=== PATIENT | female | born 1965 | race Caucasian/White ===

== ENCOUNTER 2021-03-09 02:25 | Inpatient (IN) | payer OTHER ==
[2021-03-09] MEDS ORDERED: NALOXONE 0.4 MG/ML 1 ML VIAL IV PRN (03:09)
[2021-03-09] MEDS ORDERED: ONDANSETRON 4 MG/2 ML VIAL IVP PRN (03:09)
[2021-03-09] MEDS ORDERED: MORPHINE SULFATE 4 MG/ML SYRINGE IV PRN (03:09)
--- NOTE | 2021-03-09 03:19 | ED ---
General Adult HPI - General Chief complaint: Chest Pain Stated complaint: Chest Pain Time Seen by Provider: 03/09/21 02:33 Source: EMS Mode of arrival: EMS - History of Present Illness Initial comments: 55 year-old female patient presents to the emergency department as a transfer from [facility] for NSTEMI. Patient states earlier today she developed pain across her chest from shoulder to shoulder. States she had multiple high blood pressure readings at home so she went in for evaluation. While at the other facility she had extensive workup including labs, chest xray, and ekg. Initial troponin <0.05, second troponin elevated 0.13, they started heparin and transferred her here for further evaluation by cardiology. Upon presentation patient is resting comfortably states she is pain free. She denies personal or family history of cardiac disease. Does report history of high blood pressure and is a current everyday smoker. Patient denies any recent rash, f ever, chills, cough, abdominal pain, nausea, vomiting, diarrhea, constipation, back pain, numbness, tingling, dizziness, weakness, hematuria, dysuria, urinary urgency, urinary frequency, headache, visual changes, or any other complaints. - Related Data Allergies Allergy/AdvReac Type Severity Reaction Status Date / Time No Known Allergies Allergy Verified 03/09/21 02:31 Review of Systems ROS Statement: Those systems with pertinent positive or pertinent negative responses have been documented in the HPI. ROS Other: All systems not noted in ROS Statement are negative. Past Medical History Past Medical History: Seizure Disorder History of Any Multi-Drug Resistant Organisms: None Reported Past Surgical History: Cholecystectomy, Hysterectomy Past Psychological History: No Psychological Hx Reported Smoking Status: Current every day smoker Past Alcohol Use History: None Reported Past Drug Use History: None Reported General Exam General appearance: alert, in no apparent distress, other (Physical well- developed, well-nourished adult female patient in no acute distress.) Eye exam: Present: normal appearance, PERRL, EOMI. Absent: scleral icterus, conjunctival injection, periorbital swelling ENT exam: Present: normal exam, normal oropharynx, mucous membranes moist Respiratory exam: Present: normal lung sounds bilaterally. Absent: respiratory distress, wheezes, rales, rhonchi, stridor Cardiovascular Exam: Present: regular rate, normal rhythm, normal heart sounds. Absent: systolic murmur, diastolic murmur, rubs, gallop, clicks GI/Abdominal exam: Present: soft, normal bowel sounds. Absent: distended, tenderness, guarding, rebound, rigid Neurological exam: Present: alert, oriented X3, CN II-XII intact Psychiatric exam: Present: normal affect, normal mood Skin exam: Present: warm, dry, intact, normal color. Absent: rash Course Vital Signs 03/09/21 03/09/21 02:27 03:00 Temperature 97.7 F Pulse Rate 84 52 L Respiratory 19 18 Rate Blood Pressure 163/75 O2 Sat by Pulse 98 Oximetry EKG Findings - EKG Comments: EKG Findings:: EKG obtained here at [facility] to 37 shows normal sinus rhythm with prolonged QT interval. Ventricular rate is 81, ID interval 128, QRS duration 66, QT 452, QTc 525. No evidence of ST elevation or depression. Medical Decision Making - Medical Decision Making 55-year-old female patient presenting is a transfer from [facility] for an STEMI. Started having chest pain earlier today was evaluated in the ER, second troponin was elevated at 0.13. She was started on heparin transferred here. Upon arrival patient's resting comfortable, denies any pain. We did repeat troponin which was 0.251. EKG showed no ST elevation or depression. She'll be admitted to the hospital for further evaluation by cardiology in the morning. Case is discussed with my attending Dr. Saini. - Lab Data Lab Results 03/09/21 03/09/21 Range/Units 02:39 02:47 APTT 115.1 H* (22.0-30.0) sec Troponin I 0.251 H* (0.000-0.034) ng/mL - Radiology Data Radiology results: report reviewed, image reviewed Disposition Clinical Impression: NSTEMI (non-ST elevated myocardial infarction) Disposition: ADMITTED IP TO THIS [facility] Condition: Serious Decision to Admit Reason: Admit from EC Decision Date: 03/09/21 Decision Time: 03:20
[2021-03-09] MEDS ORDERED: HEPARIN SODIUM 1,000 UN/ML (10ML VL) IV PRN (04:01)
[2021-03-09] MEDS: SODIUM CHLORIDE 0.9% 1,000 ML IV SCH ×4 (04:53→19:33)
[2021-03-09] MEDS: HEPARIN SOD,PORK IN 0.45% NACL 25,000 UNIT in 0.45% NACL 1 250ML.BAG IV SCH ×2 (04:54→19:34)
[2021-03-09] MEDS ORDERED: HEPARIN SODIUM,PORCINE 2,500 UNIT in SODIUM CHLORIDE 0.9% 250 ML IRRIGATION PRN (07:00)
[2021-03-09] MEDS ORDERED: HEPARIN SODIUM,PORCINE 10,000 UNIT in SODIUM CHLORIDE 0.9% 1,000 ML IRRIGATION PRN (07:00)
[2021-03-09] MEDS: METOPROLOL TARTRATE 25 MG TAB PO SCH ×2 (08:00→19:32)
[2021-03-09] MEDS ORDERED: ASPIRIN 325 MG TAB PO STA (08:47)
[2021-03-09] MEDS ORDERED: ALPRAZolam 0.25 MG TAB PO PRN (08:47)
[2021-03-09] MEDS ORDERED: ALPRAZolam 0.5 MG TAB PO PRN (08:47)
[2021-03-09] MEDS ORDERED: ATORVASTATIN 80 MG TAB PO STA (08:47)
[2021-03-09] MEDS ORDERED: NITROGLYCERIN SL TABS 0.4 MG TAB SUBLINGUAL PRN ×2 (08:47→11:54)
[2021-03-09] MEDS: SODIUM CHLORIDE 0.9% 1,000 ML in EMPTY BAG 1 BAG IV SCH (09:23)
[2021-03-09] MEDS: ASPIRIN 81 MG PO SCH (10:34)
[2021-03-09] MEDS ORDERED: SODIUM CHLORIDE 0.9% 1,000 ML IV ONE (10:35)
[2021-03-09] MEDS ORDERED: VERAPAMIL 2.5 MG/ML 2 ML AMP ONE (10:48)
[2021-03-09] MEDS ORDERED: LIDOCAINE 1% INJ 10MG/ML (20 ML MDV) ONE (10:49)
[2021-03-09] MEDS ORDERED: fentaNYL (PF) 50 MCG/ML 2 ML AMP ONE (11:03)
[2021-03-09] MEDS ORDERED: fentaNYL (PF) 50 MCG/ML 2 ML AMP IV ONE (11:07)
[2021-03-09] MEDS ORDERED: MIDAZOLAM 2 MG/2 ML VIAL IV ONE (11:07)
[2021-03-09] MEDS ORDERED: LIDOCAINE 1% INJ 10MG/ML (20 ML MDV) SQ ONE (11:08)
[2021-03-09] MEDS ORDERED: VERAPAMIL SYRINGE (5 MG/10 ML) INTRAARTER ONE (11:10)
[2021-03-09] MEDS ORDERED: HEPARIN SODIUM 1,000 UN/ML (10ML VL) ONE (11:12)
[2021-03-09] MEDS ORDERED: HEPARIN SODIUM 1,000 UN/ML (10ML VL) IV ONE (11:13)
[2021-03-09] MEDS ORDERED: PRASUGREL 10 MG TAB ONE (11:22)
[2021-03-09] MEDS ORDERED: PRASUGREL 10 MG TAB PO ONE (11:25)
[2021-03-09] MEDS: NITROGLYCERIN 1000MCG/10ML SYRINGE INTRACORON ONE ×2 (11:29→11:33)
[2021-03-09] MEDS ORDERED: IOPAMIDOL-370 125ML BTL INJ ONE (11:36)
[2021-03-09] MEDS ORDERED: IOPAMIDOL-370 100ML BTL INJ ONE (11:43)
[2021-03-09] MEDS ORDERED: MAG HYDROX/AL HYDROX/SIMETH 30 ML CUP PO PRN (11:54)
[2021-03-09] MEDS ORDERED: ATROPINE SULFATE 0.1 MG/ML 10ML SYRINGE IV PRN (11:54)
[2021-03-09] MEDS ORDERED: RX INFO: IV CONTRAST WAS GIVEN 1 EACH MISC MISCELLANE PRN (11:54)
[2021-03-09] MEDS ORDERED: ZOLPIDEM 5 MG TAB PO PRN (11:54)
--- NOTE | 2021-03-09 13:44 | P.CRDCN ---
History of Present Illness Consult date: 03/09/21 History of present illness: HISTORY OF PRESENT ILLNESS: This is a 55-year-old female with a past medical history significant for hypertension, nicotine dependence, and family history of coronary artery disease. 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 We have been asked to see the patient in consultation for chest pain. Patient examined at the bedside. Patient states yesterday she was sitting at home when she developed chest pain. She states the pain went across her bilateral chest and shoulders. She reports feeling short of breath. She also reports feeling diaphoretic and nauseated. Patient took her blood pressure and she states the systolic was 209. She states her blood pressure usually runs in the 150s. Patient presented to the hospital for further evaluation. Patient was given a nitro patch which relieved her chest pain. She currently denies chest pain or pressure. She denies shortness of breath. She states her sister just recently had a heart attack with a stent placed. EKG reveals sinus mechanism with no signs of acute ischemia Laboratory data: Troponin 0.05. 0.13. 0.251. 0.367. Current home cardiac medications include Norvasc 5 mg daily REVIEW OF SYSTEMS: At the time of my exam: CONSTITUTIONAL: Denies fever or chills. HEENT: Denies blurred vision, vision changes, or eye pain. Denies hemoptysis CARDIOVASCULAR: Denies chest pain. Denies orthopnea. Denies PND. Denies palpitations RESPIRATORY: Denies shortness of breath. GASTROINTESTINAL: Denies abdominal pain. Denies nausea or vomiting. HEMATOLOGIC: Denies bleeding disorders. GENITOURINARY: Denies any blood in urine. SKIN: Denies pruitis. Denies rash. PHYSICAL EXAM: VITAL SIGNS: Reviewed. GENERAL: Well-developed in no acute distress. HEENT: Head is normocephalic. Pupils are equal, round. Sclerae anicteric. Mucous membranes of the mouth are moist. Neck supple. No JVD or thyromegaly LUNGS: Respirations even and unlabored. Lungs essentially clear to auscultation bilaterally. HEART: Regular rate and rhythm. S1 and S2 heard. ABDOMEN: Soft. Nondistended. Nontender. EXTREMITIES: Normal range of motion. No clubbing or cyanosis. Peripheral pulses intact. No lower extremity edema NEUROLOGIC: Awake and alert. Oriented x 3. ASSESSMENT: Non-STEMI Hypertension Nicotine dependence Family history of premature coronary artery disease PLAN: Obtain 2D echo to assess cardiac structure and function Continue IV heparin Add aspirin 81mg daily, Lipitor 80 mg daily, metoprolol 25 mg twice a day Obtain lipid panel Smoking cessation recommended Patient to undergo cardiac catheterization today with Dr. Davis Further recommendations pending patient's course Nurse practitioner note has been reviewed by physician. Signing provider agrees with the documented findings, assessment, and plan of care. Past Medical History Past Medical History: Seizure Disorder History of Any Multi-Drug Resistant Organisms: None Reported Past Surgical History: Cholecystectomy, Hysterectomy Past Psychological History: No Psychological Hx Reported Smoking Status: Current every day smoker Past Alcohol Use History: None Reported Past Drug Use History: None Reported - Past Family History Father Family Medical History: COPD Additional Family Medical History / Comment(s): Father of emphysema. Mother Family Medical History: Cancer, Hypertension Additional Family Medical History / Comment(s): Mother of nonhodgkins lymphoma. Medications and Allergies Home Medications Medication Instructions Recorded Confirmed Type amLODIPine [Norvasc] 5 mg PO DAILY@1800 03/09/21 03/09/21 History Allergies Allergy/AdvReac Type Severity Reaction Status Date / Time No Known Allergies Allergy Verified 03/09/21 11:07 Physical Exam Vitals: Vital Signs Temp Pulse Resp BP Pulse Ox 03/09/21 06:00 79 18 03/09/21 04:56 97.5 F L 75 18 140/69 97 03/09/21 03:00 52 L 18 03/09/21 02:27 97.7 F 84 19 163/75 98 Intake and Output 03/08/21 03/09/21 03/09/21 22:59 06:59 14:59 Other: Weight 42.638 kg Results Cardiac Enzymes 03/09/21 Range/Units 02:39 Troponin I 0.251 H* (0.000-0.034) ng/mL Coagulation 03/09/21 Range/Units 02:47 APTT 115.1 H* (22.0-30.0) sec Current Medications Generic Name Dose Route Start Last Admin Trade Name Freq PRN Reason Stop Dose Admin Aspirin 81 mg 03/09/21 09:00 Aspirin 81 Mg PO DAILY BOB Atorvastatin Calcium 80 mg 03/09/21 21:00 Atorvastatin 80 Mg Tab PO HS BOB Heparin Sodium (Porcine) 0 unit 03/09/21 04:01 Heparin Sodium 1,000 Un/Ml (10ml Vl) IV PER PROTOCOL PRN Low PTT Protocol Sodium Chloride 1,000 mls @ 20 mls/hr 03/09/21 03:15 03/09/21 04:53 Saline 0.9% IV 20 mls/hr .Q24H BOB Administration Heparin Sodium/Sodium Chloride 250 mls @ 5.117 mls/hr 03/09/21 04:15 03/09/21 04:54 25,000 unit/ Sodium Chloride IV 12 units/kg/hr .Q24H BOB 5.117 mls/hr Administration Protocol 12 UNITS/KG/HR Metoprolol Tartrate 25 mg 03/09/21 09:00 Metoprolol Tartrate 25 Mg Tab PO BID [facility] Morphine Sulfate 4 mg 03/09/21 03:09 Morphine Sulfate 4 Mg/Ml Syringe IV Q4HR PRN Severe Pain Naloxone HCl 0.2 mg 03/09/21 03:09 Naloxone 0.4 Mg/Ml 1 Ml Vial IV Q2M PRN Opioid Reversal Ondansetron HCl 4 mg 03/09/21 03:09 Ondansetron 4 Mg/2 Ml Vial IVP Q8HR PRN Nausea And Vomiting Intake and Output 03/08/21 03/09/21 03/09/21 22:59 06:59 14:59 Other: Weight 42.638 kg
--- NOTE | 2021-03-09 15:01 | P.HPIM ---
History of Present Illness H&P Date: 03/09/21 Chief Complaint: Chest pain This is a pleasant 55-year-old patient who follows with Dr. Barry Zavala. Chronic stable medical conditions include hypertension, hyperlipidemia patient stopped taking medications since change of insurance GERD, seizure disorder last episode being 4 years ago. Patient is a smoker with positive family history of coronary artery disease. Patient yesterday evening started off with pain across her chest. [place] pressure-like. Even at rest. Related to the shoulder. No relieving factors. Patient [place] in significant perspiration. Nausea. Pain was present for quite a while. Patient presented initially to [facility]. Troponin is started to become positive. Patient was transferred down here. Patient underwent cardiac catheterization stent to the circumflex was done. Cardiology is planning to go back for further intervention. Postprocedure laying in bed. No symptoms. the bedside. Initial troponin at [facility] was 0.13. Review of systems: GEN.: Tired EYES: None HEENT: None NECK: None RESPIRATORY: As above CARDIOVASCULAR: As above GASTROINTESTINAL: Heartburn GENITOURINARY: None MUSCULOSKELETAL: None LYMPHATICS: None HEMATOLOGICAL: None PSYCHIATRY: None NEUROLOGICAL: None Past medical history to include: Hypertension, hyperlipidemia, seizure disorder last episode being 4 years ago, gastritis Social history: . Smokes a pack a day for close to 40 years. No alcohol. Does accoun ting job. Family history: Emphysema. CAD. Physical examination: VITAL SIGNS: 98, 86, 16, 1:30/61, 97% on room air GENERAL: BMI 16.1, laying in bed, awake, tired. EYES: Pupils equal. Conjunctiva normal. HEENT: External appearance of nose and ears normal, oral cavity grossly normal. NECK: JVD not raised; masses not palpable. HEART: First and second heart sounds are normal; no edema. LUNGS: Respiratory rate normal; decreased breath sounds. ABDOMEN: Soft, nontender, liver spleen not palpable, no masses palpable. PSYCH: Alert and oriented x3; mood and affect normal. NEUROLOGICAL: Cranial nerves grossly intact; no facial asymmetry, power and sensation grossly intact. LYMPHATICS: No lymph nodes palpable in the axilla and neck INVESTIGATIONS, reviewed in the clinical context: EKG tracing personally reviewed by me-normal sinus rhythm, peaked P waves Blood work from [facility]: Troponin 0.13, sodium 136 potassium 3.9 creatinine 15 creatinine 1.0 proBNP 132 Assessment and plan: -Acute non-Q wave PA. Aspirin, Lipitor, Lopressor -CAD with angioplasty stenting to left circumflex. 4 report pending. Plan for cardiology to go back for more intervention IV heparin. Aspirin. Effient -IV heparin monitoring, follow PTT -Emphysema, asymptomatic. In a current smoker Albuterol when necessary -Chronic nicotine dependence, cigarette smoker Nicotine 21 g patch -GERD Pepcid 20 mg twice a day -Essential hypertension Lopressor 25 mg twice a day -Mild protein calorie malnutrition Ensure one can 3 times a day Care was discussed with the patient has been the bedside. Continue current medications. IV heparin. Aspirin, Effient. Follow with cardiology. Past Medical History Past Medical History: COPD, Hyperlipidemia, Hypertension, Pneumonia, Seizure Disorder Additional Past Medical History / Comment(s): Pt states seizures associated with pain and last seizure 4 yrs ago, high cholesterol but not on medication yet, gastritis, frequent UTIs. History of Any Multi-Drug Resistant Organisms: None Reported Past Surgical History: Cholecystectomy, Hysterectomy Additional Past Surgical History / Comment(s): Partial hysterectomy then partial oophorectomy d/t cysts, colonoscopy. Past Anesthesia/Blood Transfusion Reactions: Postoperative Nausea & Vomiting (PONV) Smoking Status: Current every day smoker - Past Family History Father Family Medical History: COPD Additional Family Medical History / Comment(s): Father of emphysema. Mother Family Medical History: Cancer, Hypertension Additional Family Medical History / Comment(s): Mother of nonhodgkins lymphoma. Medications and Allergies Home Medications Medication Instructions Recorded Confirmed Type amLODIPine [Norvasc] 5 mg PO DAILY@1800 03/09/21 03/09/21 History Allergies Allergy/AdvReac Type Severity Reaction Status Date / Time No Known Allergies Allergy Verified 03/09/21 11:07 Physical Exam Vitals: Vital Signs Temp Pulse Resp BP Pulse Ox 03/09/21 06:00 79 18 03/09/21 04:56 97.5 F L 75 18 140/69 97 03/09/21 03:00 52 L 18 03/09/21 02:27 97.7 F 84 19 163/75 98 Intake and Output 03/08/21 03/09/21 03/09/21 22:59 06:59 14:59 Other: Weight 42.638 kg 42.638 kg Results Labs: Abnormal Lab Results - Last 24 Hours (Table) 03/09/21 03/09/21 Range/Units 02:39 02:47 APTT 115.1 H* (22.0-30.0) sec Troponin I 0.251 H* (0.000-0.034) ng/mL Thrombosis Risk Factor Assmnt - Choose All That Apply Any of the Below Risk Factors Present?: Yes Each Factor Represents 1 point: Acute PA, Age 41-60 years Other Risk Factors: No Other congenital or acquired thrombophilia - If yes, enter type in comment: No Thrombosis Risk Factor Assessment Total Risk Factor Score: 2 Thrombosis Risk Factor Assessment Level: Low Risk
[2021-03-09] MEDS: ATORVASTATIN 80 MG TAB PO SCH (15:23)
[2021-03-09] MEDS: NICOTINE 21MG/24HR PATCH TRANSDERM SCH (15:33)
--- NOTE | 2021-03-09 16:55 | XR ---
EXAMINATION TYPE: XR chest 2V DATE OF EXAM: 03/09/2021 COMPARISON: 03/08/2021 HISTORY: Post cardiac stent. TECHNIQUE: Frontal and lateral views of the chest are obtained. FINDINGS: There is interval cardiac stent placement. There is background of COPD. No focal air space opacity, pleural effusion, or pneumothorax seen. The cardiac silhouette size is within normal limit s. The osseous structures are intact. IMPRESSION: Status post cardiac stent. Otherwise no acute cardiopulmonary process.
--- NOTE | 2021-03-09 18:20 | P.PRCINT ---
Percutaneous Coronary Int. - Percutaneous Coronary Intervention Percutaneous Coronary Intervention: PROCEDURES PERFORMED: Left heart catheterization, bilateral coronary angiography, PCI mid circumflex with a 3.0 x 12mm Xience REMY, post dilated with a 3.25 x 8mm NC balloon INDICATION: Abnormal stress test HISTORY: Patient is a pleasant 55 year old female with history of tobacco abuse and family history of CAD who present with sudden onset of chest pain and diaphoresis. She was given nitro with resolution of her chest pain and was found to have NSTEMI and therefore LHC was recommended. CONSENT:I have discussed the risks, benefits and alternative therapies for the above-mentioned procedure and for both sedation/analgesia as well as necessary blood product administration, if indicated, as they pertain to this patient. The patient has indicated understanding and acceptance of the risks and procedures discussed. PROCEDURE: After the risks, benefits and alternatives of the above mentioned procedure explained in detail with the patient, informed consent was obtained. Patient was taken to the catheterization lab and prepped and draped in usual fashion. 1% lidocaine was used to anesthetize the right radial artery. A 6- Emirati sheath was placed in the right radial artery using modified Seldinger technique. Left coronary angiography was performed with a 5-Emirati JL 3.5 catheter and right coronary angiography was performed with a 5-Emirati JR5 catheter in various views. A 5-Emirati FR5 catheter was inserted into the left ventricle and pressure measurements were obtained. The culprit artery was thought to possibly be the circumflex given the RCA had collaterals and may have been more chronic. Therefore the decision was made to perform PCI of the circumflex first. The left main was engaged with a 6Fr CLS 3.0 guide. Heparin was given for ACT > 250. A 0.014 BMW wire was advanced into the distal circumflex. The lesion was predilated with a 2.5 x 12mm balloon. Next a 3.0 x 12mm Xience REMY was postioned and deployed. There was still some residual underexpansion of the proximal portion of the stent and therefore this was post dilated with a 3.25 x 8mm NC balloon. Pre intervention there was 90% stenosis with SHIVAM 3 flow and post intervention there was 0% stenosis and SHIVAM 3 flow. Due to nearing contrast threshold, the RCA was felt best staged. The right radial sheath was removed and a TR band was placed with hemostasis achieved. The patient tolerated the procedure well. Patient was transported back to the post catheterization holding area in stable condition. Conscious Sedation: Patient was monitored under the direct supervision of vision of myself for conscious sedation using Versed and fentanyl for a total duration of 15 minutes HEMODYNAMICS: Aortic: 122/50 LV: 120/1, LVEDP 6 SELECTIVE CORONARY ARTERIOGRAPHY: LEFT MAIN: The left main is a large caliber vessel which bifurcates into the LAD and circumflex. There is no significant stenosis. LEFT ANTERIOR DESCENDING CORONARY ARTERY: LAD is a large caliber vessel which wraps around the apex. There are is a mid LAD 40-50% stenosis. There are extensive left to right collaterals. LEFT CIRCUMFLEX CORONARY ARTERY: Left circumflex is a moderate caliber vessel with a longer 30% mid circumflex stenosis followed by a more diffusely diseased area with focal mid circumflex 90% stenosis. RIGHT CORONARY ARTERY: The right coronary artery is a large caliber vessel which gives off a PDA and PLV branch and is the dominant vessel. There is diffuse 70- 90% stenosis of the proximal RCA. The RCA then gives off an acute marginal branch and there is competitive filling of the mid RCA, just after the marginal branch from the left to right collaterals. On the collateral imaging there is a 95% stenosis at this mid RCA level. FINAL IMPRESSION: 1. Coronary artery disease as described above including 90% circumflex, 70-95% stenosis of the RCA and 40-50% stenosis of the mid LAD. 2. Low normal left sided filling pressures PLAN: 1. Aggressive risk factor modification per most recent ACC/AHA guidelines. 2. Continue dual antiplatelets for 12 months 3. Staged PCI of RCA this admission. 4. Tobacco cessation.
[2021-03-10 06:45] LABS: Basophils # (A) 0.1 k/uL (0-0.2); Basophils % (A) 1 %; Eosinophils # (A) 0.1 k/uL (0-0.7); Eosinophils % (A) 2 %; HCT 35.1 % (34.0-46.0); HGB 11.6 gm/dL (11.4-16.0); Lymphocytes # (A) 1.2 k/uL (1.0-4.8); Lymphocytes % (A) 20 %; MCH 31.6 pg (25.0-35.0); MCV 95.7 fL (80.0-100.0); Mean Platelet Volume 7.7; Monocytes # (A) 0.5 k/uL (0-1.0); Monocytes % (A) 7 %; Neutrophils # (A) 4.3 k/uL (1.3-7.7); Neutrophils % (A) 69 %; Platelet Count 196 k/uL (150-450); RBC 3.67 m/uL (3.80-5.40); RDW 12.8 % (11.5-15.5); WBC 6.2 k/uL (3.8-10.6)
[2021-03-10 07:12] LABS: Calcium 8.9 mg/dL (8.4-10.2); Potassium 4.3 mmol/L (3.5-5.1)
[2021-03-10] MEDS: NICOTINE 21MG/24HR PATCH TRANSDERM SCH (08:46)
[2021-03-10] MEDS: PRASUGREL 10 MG TAB PO SCH (08:49)
[2021-03-10] MEDS: METOPROLOL TARTRATE 25 MG TAB PO SCH ×2 (08:49→22:04)
[2021-03-10] MEDS: ASPIRIN 81 MG PO SCH (08:49)
[2021-03-10] MEDS: SODIUM CHLORIDE 0.9% 1,000 ML in EMPTY BAG 1 BAG IV SCH (08:50)
--- NOTE | 2021-03-10 10:47 | ECHOF ---
Referral Reason:LV function, NSTEMI MEASUREMENTS -------- HEIGHT: 162.6 cm WEIGHT: 42.6 kg BP: 139/69 RVIDd: 2.7 cm (< 3.3) IVSd: 1.3 cm (0.6 - 1.1) LVIDd: 2.6 cm (3.9 - 5.3) LVPWd: 1.3 cm (0.6 - 1.1) IVSs: 1.7 cm LVIDs: 1.9 cm LVPWs: 1.5 cm LAESV Index (A-L): 15.50 ml/m Ao Diam: 1.7 cm (2.0 - 3.7) AV Cusp: 1.7 cm (1.5 - 2.6) MV EXCURSION: 14.919 mm (> 18.000) MV EF SLOPE: 38 mm/s (70 - 150) EPSS: 0.3 cm MV E Kam: 0.93 m/s MV DecT: 194 ms MV A Kam: 0.99 m/s MV E/A Ratio: 0.94 AR PHT: 381 ms RAP: 5.00 mmHg RVSP: 15.01 mmHg FINDINGS -------- Sinus rhythm. This was a technically adequate study. The left ventricular size is normal. There is mild concentric left ventricular hypertrophy. Overa ll left ventricular systolic function is normal with, an EF between 55 - 60 %. The diastolic fillin g pattern is normal for the age of the patient 14.51. The right ventricle is normal in size. Normal LA size by volume 22+/-6 ml/m2. The right atrial size is normal. Interatrial and interventricular septum intact. There is [id number] aortic regurgitation. There is no evidence of aortic stenosis. No mitral regurgitation. Mild tricuspid regurgitation present. There is no evidence of pulmonary hypertension. The right v entricular systolic pressure, as measured by Doppler, is 15.01mmHg. There is no pulmonic regurgitation present. The aortic root size is normal. Normal inferior vena cava with normal inspiratory collapse consistent with estimated right atrial pre ssure of 5 mmHg. There is no pericardial effusion. CONCLUSIONS -------- 1. The left ventricular size is normal. 2. There is mild concentric left ventricular hypertrophy. 3. Overall left ventricular systolic function is normal with, an EF between 55 - 60 %. 4. There is [id number] aortic regurgitation. 5. Mild tricuspid regurgitation present. CONSTRUCTION JOB TITLES: Liz Lees RDCS
[2021-03-10 11:01] VITALS: BMI 15.8
[2021-03-10 12:17] LABS: Glucose,Whole Blood 95 mg/dL (75-99)
--- NOTE | 2021-03-10 12:25 | P.PN ---
Progress Note - Text Progress Note Date: 03/10/21 Chief Complaint: Chest pain This is a pleasant 55-year-old patient who follows with Dr. Barry Zavala. Chronic stable medical conditions include hypertension, hyperlipidemia patient stopped taking medications since change of insurance GERD, seizure disorder last episode being 4 years ago. Patient is a smoker with positive family history of coronary artery disease. Patient yesterday evening started off with pain across her chest. [place] pressure-like. Even at rest. Related to the shoulder. No relieving factors. Patient [place] in significant perspiration. Nausea. Pain was present for quite a while. Patient presented initially to [facility]. Troponin is started to become positive. Patient was transferred down here. Patient underwent cardiac catheterization stent to the circumflex was done. Cardiology is planning to go back for further intervention. Postprocedure laying in bed. No symptoms. the bedside. Initial troponin at [facility] was 0.13. Patient admitted with acute non-Q wave SC. Angioplasty stenting candidate out to the left circumflex. IV heparin. 03/10/2021: Sitting up in a chair. Did walk around the room. No chest pain or shortness of breath. Patient be going back to the [facility] tomorrow. IV he genoveva Review of systems: Was done for constitutional, cardiovascular, GI, pulmonary. relevant finding as above Active Medications Al Hydroxide/Mg Hydroxide (Mag Hydrox/Al Hydrox/Simeth 30 Ml Cup) 30 ml PO Q4HR PRN PRN Reason: Heartburn Alprazolam (Alprazolam 0.25 Mg Tab) 0.25 mg PO Q6HR PRN PRN Reason: Mild Anxiety Alprazolam (Alprazolam 0.5 Mg Tab) 0.5 mg PO Q6HR PRN PRN Reason: Moderate Anxiety Aspirin (Aspirin 81 Mg) 81 mg PO DAILY [facility] Last Admin: 03/10/21 08:49 Dose: 81 mg Documented by: Atorvastatin Calcium (Atorvastatin 80 Mg Tab) 80 mg PO HS [facility] Last Admin: 03/09/21 15:23 Dose: Not Given Documented by: Atropine Sulfate (Atropine Sulfate 0.1 Mg/Ml 10ml Syringe) 0.5 mg IV ONCE PRN PRN Reason: Symptomatic Bradycardia Heparin Sodium (Porcine) (Heparin Sodium 1,000 Un/Ml (10ml Vl)) 0 unit IV PER PROTOCOL PRN; Protocol PRN Reason: Low PTT Sodium Chloride (Saline 0.9%) 1,000 mls @ 20 mls/hr IV .Q24H [facility] Last Admin: 03/09/21 19:33 Dose: Not Given Documented by: Heparin Sodium/Sodium Chloride (25,000 unit/ Sodium Chloride) 250 mls @ 5.117 mls/hr IV .Q24H [facility]; Protocol Last Admin: 03/09/21 19:34 Dose: Not Given Documented by: Sodium Chloride 1,000 ml/ IV (Solution) 1,000 mls @ 42.638 mls/hr IV .[id number] [facility] Last Admin: 03/10/21 08:50 Dose: 42.638 mls/hr Documented by: Sodium Chloride (Saline 0.9%) 1,000 mls @ 75 mls/hr IV .[id number] [facility] Last Admin: 03/09/21 19:33 Dose: 75 mls/hr Documented by: Metoprolol Tartrate (Metoprolol Tartrate 25 Mg Tab) 25 mg PO BID [facility] Last Admin: 03/10/21 08:49 Dose: 25 mg Documented by: Miscellaneous Information (Rx Info: Iv Contrast Was Given 1 Each Misc) 1 each MISCELLANE DAILY PRN PRN Reason: Per Protocol Stop: 03/11/21 11:54 Morphine Sulfate (Morphine Sulfate 4 Mg/Ml Syringe) 4 mg IV Q4HR PRN PRN Reason: Severe Pain Naloxone HCl (Naloxone 0.4 Mg/Ml 1 Ml Vial) 0.2 mg IV Q2M PRN PRN Reason: Opioid Reversal Nicotine (Nicotine 21mg/24hr Patch) 1 patch TRANSDERM DAILY [facility] Last Admin: 03/10/21 08:46 Dose: Not Given Documented by: Nitroglycerin (Nitroglycerin Sl Tabs 0.4 Mg Tab) 0.4 mg SUBLINGUAL Q5M PRN PRN Reason: Chest Pain Ondansetron HCl (Ondansetron 4 Mg/2 Ml Vial) 4 mg IVP Q8HR PRN PRN Reason: Nausea And Vomiting Prasugrel (Prasugrel 10 Mg Tab) 10 mg PO DAILY [facility] Last Admin: 03/10/21 08:49 Dose: 10 mg Documented by: Zolpidem Tartrate (Zolpidem 5 Mg Tab) 5 mg PO HS PRN PRN Reason: Insomnia Past medical history to include: Hypertension, hyperlipidemia, seizure disorder last episode being 4 years ago, gastritis Social history: . Smokes a pack a day for close to 40 years. 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 CAD. Physical examination: VITAL SIGNS: 98.2, 84, 15, 1 27 x 69, 96% room air GENERAL: Sitting up in a chair, awake, comfortable EYES: Pupils equal. Conjunctiva normal. HEENT: External appearance of nose and ears normal, oral cavity grossly normal. NECK: JVD not raised; masses not palpable. HEART: First and second heart sounds are normal; no edema. LUNGS: Respiratory rate normal; decreased breath sounds. ABDOMEN: Soft, nontender, liver spleen not palpable, no masses palpable. PSYCH: Alert and oriented x3; mood and affect normal. INVESTIGATIONS, reviewed in the clinical context: March 10: White count 6.2 hemoglobin 11.6 potassium 4.3 creatinine 0.84 EKG tracing personally reviewed by me-normal sinus rhythm, peaked P waves Blood work from [facility]: Troponin 0.13, sodium 136 potassium 3.9 creatinine 15 creatinine 1.0 proBNP 132 Assessment and plan: -Acute non-Q wave SC. Aspirin, Lipitor, Lopressor -CAD with angioplasty stenting to left circumflex. [90% circumflex, 70-95% stenosis of the RCA and 40-50% stenosis of the mid LAD.] IV heparin. Aspirin. Effient -IV heparin monitoring, follow PTT -Emphysema, asymptomatic. In a current smoker Albuterol when necessary -Chronic nicotine dependence, cigarette smoker Nicotine 21 g patch -GERD Pepcid 20 mg twice a day -Essential hypertension Lopressor 25 mg twice a day -Mild protein calorie malnutrition Ensure one can 3 times a day Continue current medications. IV heparin. Aspirin, Effient. Patient to return to the laboratory secretary tomorrow.
[2021-03-10] MEDS ORDERED: NITROGLYCERIN SL TABS 0.4 MG TAB SUBLINGUAL PRN (14:27)
[2021-03-10] MEDS ORDERED: ALPRAZolam 0.5 MG TAB PO PRN (14:27)
[2021-03-10] MEDS ORDERED: ALPRAZolam 0.25 MG TAB PO PRN (14:27)
--- NOTE | 2021-03-10 14:27 | P.PN ---
Subjective Progress Note Date: 03/10/21 HISTORY OF PRESENT ILLNESS: This is a 55-year-old female with a past medical history significant for hypertension, nicotine dependence, and family history of coronary artery disease. Patient does not follow with a hand coper. We have been asked to see the patient in consultation for chest pain. Patient examined at the bedside. Patient states yesterday she was sitting at home when she developed chest pain. She states the pain went across her bilateral chest and shoulders. She reports feeling short of breath. She also reports feeling diaphoretic and nauseated. Patient took her blood pressure and she states the systolic was 209. She states her blood pressure usually runs in the 150s. Patient presented to the hospital for further evaluation. Patient was given a nitro patch which relieved her chest pain. She currently denies chest pain or pressure. She denies shortness of breath. She states her sister just recently had a heart attack with a stent placed. EKG reveals sinus mechanism with no signs of acute ischemia Laboratory data: Troponin 0.05. 0.13. 0.251. 0.367. Current home cardiac medications include Norvasc 5 mg daily 03/10/2021 Patient is status post cardiac catheterization yesterday with Dr. Davis revealing 90% circumflex, 70-95% stenosis of RCA, and 40-50% stenosis of the mid LAD. She underwent stenting to the circumflex. Patient denies any chest pain or pressure. She denies shortness of breath. Vital signs are stable. Echocardiogram completed revealed ejection fraction 55-60% with [id number] aortic regurgitation. PHYSICAL EXAM: VITAL SIGNS: Reviewed. GENERAL: Well-developed in no acute distress. HEENT: Head is normocephalic. Pupils are equal, round. Sclerae anicteric. Mucous membranes of the mouth are moist. Neck supple. No JVD or thyromegaly LUNGS: Respirations even and unlabored. Lungs essentially clear to auscultation bilaterally. HEART: Regular rate and rhythm. S1 and S2 heard. ABDOMEN: Soft. Nondistended. Nontender. EXTREMITIES: Normal range of motion. No clubbing or cyanosis. Peripheral pulses intact. No lower extremity edema. Right radial Site with pulse present. NEUROLOGIC: Awake and alert. Oriented x 3. ASSESSMENT: Non-STEMI Coronary artery disease, status post PCI to circumflex Hypertension Nicotine dependence Family history of premature coronary artery disease PLAN: Continue current cardiac medications Smoking cessation recommended Patient to undergo repeat cardiac cath tomorrow with stenting to the RCA Further recommendations pending patient's course Nurse practitioner note has been reviewed by physician. Signing provider agrees with the documented findings, assessment, and plan of care. Objective - Vital Signs Vital signs: Vital Signs Temp 98.2 F 03/10/21 08:47 Pulse 64 03/10/21 12:19 Resp 17 03/10/21 12:19 BP 153/87 03/10/21 12:19 Pulse Ox 98 03/10/21 12:19 Intake & Output 03/09/21 03/10/21 03/10/21 18:59 06:59 18:59 Intake Total 1086.229 360 Balance 1086.229 360 Weight 42.638 kg 41.9 kg 41.9 kg Intake: IV 700 Intake, IV Titration 28.229 Amount Heparin Sod,Pork in 0.45% 28.229 NaCl 25,000 unit In 0.45 % NaCl 1 250ml.bag @ 12 UNITS/KG/HR 5.117 mls/hr IV .Q24H [facility] Rx#: [id number] Oral 358 360 Other: Voiding Method Toilet Toilet Toilet # Voids 2 2 - Labs CBC & Chem 7: 03/10/21 06:21 03/10/21 06:21 Labs: Abnormal Lab Results - Last 24 Hours (Table) 03/09/21 03/10/21 03/10/21 Range/Units 17:56 06:21 06:21 RBC 3.67 L (3.80-5.40) m/uL Chloride 109 H (98-107) mmol/L Troponin I 0.309 H* (0.000-0.034) ng/mL
[2021-03-10 16:40] LABS: Glucose,Whole Blood 135 mg/dL (75-99)
[2021-03-10] MEDS: SODIUM CHLORIDE 0.9% 1,000 ML IV SCH (18:20)
[2021-03-10 19:44] LABS: Chol/HDL Ratio 4.51 Ratio; HDL Cholesterol 42.1 mg/dL (40.00-60.00); LDL Cholesterol,Calculated 131.6 mg/dL (0.0-131.0); Triglycerides 81.3 mg/dL (0.00-149.00); VLDL Calculation 16.26 mg/dL (5.00-40.00)
[2021-03-10 20:01] LABS: Glucose,Whole Blood 106 mg/dL (75-99)
[2021-03-10] MEDS: ATORVASTATIN 80 MG TAB PO SCH (22:04)
[2021-03-10 23:52] VITALS: RESP 16
[2021-03-11] MEDS: SODIUM CHLORIDE 0.9% 1,000 ML in EMPTY BAG 1 BAG IV SCH ×3 (01:35→14:00)
[2021-03-11] MEDS: SODIUM CHLORIDE 0.9% 1,000 ML IV SCH ×3 (04:23→09:13)
[2021-03-11] MEDS ORDERED: ATORVASTATIN 80 MG TAB PO ONE (05:00)
[2021-03-11] MEDS ORDERED: ASPIRIN 325 MG TAB PO ONE (05:00)
[2021-03-11 05:54] LABS: Glucose,Whole Blood 105 mg/dL (75-99)
[2021-03-11] MEDS ORDERED: HEPARIN SODIUM,PORCINE 10,000 UNIT in SODIUM CHLORIDE 0.9% 1,000 ML IRRIGATION PRN (07:00)
[2021-03-11] MEDS ORDERED: HEPARIN SODIUM,PORCINE 2,500 UNIT in SODIUM CHLORIDE 0.9% 250 ML IRRIGATION PRN (07:00)
[2021-03-11] MEDS ORDERED: LIDOCAINE 1% INJ 10MG/ML (20 ML MDV) ONE (07:15)
[2021-03-11] MEDS ORDERED: HEPARIN SODIUM 1,000 UN/ML (10ML VL) ONE (07:21)
[2021-03-11] MEDS ORDERED: VERAPAMIL 2.5 MG/ML 2 ML AMP ONE (07:22)
[2021-03-11] MEDS ORDERED: fentaNYL (PF) 50 MCG/ML 2 ML AMP ONE (07:22)
[2021-03-11] MEDS ORDERED: SODIUM CHLORIDE 0.9% 1,000 ML IV ONE (07:30)
[2021-03-11] MEDS ORDERED: fentaNYL (PF) 50 MCG/ML 2 ML AMP IVP ONE (07:49)
[2021-03-11] MEDS ORDERED: MIDAZOLAM 2 MG/2 ML VIAL IVP ONE (07:49)
[2021-03-11] MEDS ORDERED: LIDOCAINE 1% INJ 10MG/ML (20 ML MDV) SQ ONE (07:52)
[2021-03-11] MEDS ORDERED: HEPARIN SODIUM 1,000 UN/ML (10ML VL) IVP ONE (07:55)
[2021-03-11] MEDS ORDERED: VERAPAMIL SYRINGE (5 MG/10 ML) INTRAARTER ONE (07:55)
[2021-03-11] MEDS: NITROGLYCERIN 1000MCG/10ML SYRINGE INTRACORON ONE ×3 (08:09→08:38)
[2021-03-11] MEDS ORDERED: IOPAMIDOL-370 125ML BTL INJ ONE (08:30)
[2021-03-11] MEDS ORDERED: IOPAMIDOL-370 100ML BTL INJ ONE (08:42)
[2021-03-11] MEDS ORDERED: PRASUGREL 10 MG TAB ONE (08:45)
[2021-03-11] MEDS ORDERED: PRASUGREL 10 MG TAB PO ONE (08:51)
[2021-03-11] MEDS: NICOTINE 21MG/24HR PATCH TRANSDERM SCH (09:13)
[2021-03-11] MEDS: ASPIRIN 81 MG PO SCH (09:21)
[2021-03-11] MEDS: METOPROLOL TARTRATE 25 MG TAB PO SCH ×2 (09:21→18:50)
[2021-03-11] MEDS: PRASUGREL 10 MG TAB PO SCH (09:42)
[2021-03-11 11:36] LABS: Glucose,Whole Blood 98 mg/dL (75-99)
--- NOTE | 2021-03-11 13:58 | P.PN ---
Subjective Progress Note Date: 03/11/21 HISTORY OF PRESENT ILLNESS: This is a 55-year-old female with a past medical history significant for hypertension, nicotine dependence, and family history of coronary artery disease. Patient does not follow with a personal shopper. We have been asked to see the patient in consultation for chest pain. Patient examined at the bedside. Patient states yesterday she was sitting at home when she developed chest pain. She states the pain went across her bilateral chest and shoulders. She reports feeling short of breath. She also reports feeling diaphoretic and nauseated. Patient took her blood pressure and she states the systolic was 209. She states her blood pressure usually runs in the 150s. Patient presented to the hospital for further evaluation. Patient was given a nitro patch which relieved her chest pain. She currently denies chest pain or pressure. She denies shortness of breath. She states her sister just recently had a heart attack with a stent placed. EKG reveals sinus mechanism with no signs of acute ischemia Laboratory data: Troponin 0.05. 0.13. 0.251. 0.367. Current home cardiac medications include Norvasc 5 mg daily 03/10/2021 Patient is status post cardiac catheterization yesterday with Dr. Davis revealing 90% circumflex, 70-95% stenosis of RCA, and 40-50% stenosis of the mid LAD. She underwent stenting to the circumflex. Patient denies any chest pain or pressure. She denies shortness of breath. Vital signs are stable. Echocardiogram completed revealed ejection fraction 55-60% with [id number] aortic regurgitation. 03/11/2021 Patient examined at this point the bedside. She underwent repeat cardiac catheterization today with stenting of the RCA. She denies chest pain or pressure. Denies shortness of breath. PHYSICAL EXAM: VITAL SIGNS: Reviewed. GENERAL: Well-developed in no acute distress. HEENT: Head is normocephalic. Pupils are equal, round. Sclerae anicteric. Mucous membranes of the mouth are moist. Neck supple. No JVD or thyromegaly LUNGS: Respirations even and unlabored. Lungs essentially clear to auscultation bilaterally. HEART: Regular rate and rhythm. S1 and S2 heard. ABDOMEN: Soft. Nondistended. Nontender. EXTREMITIES: Normal range of motion. No clubbing or cyanosis. Peripheral pulses intact. No lower extremity edema. Right radial cath site with pulse present. NEUROLOGIC: Awake and alert. Oriented x 3. ASSESSMENT: Non-STEMI Coronary artery disease, status post PCI to circumflex and RCA Hypertension Nicotine dependence Family history of premature coronary artery disease PLAN: Continue current cardiac medications Smoking cessation recommended Patient unable to afford Effient. Continue aspirin. Will give patient a loading dose of Plavix of 600mg x 1 dose and then begin 75mg daily tomorrow. Patient may be discharged home today and follow up outpatient Nurse practitioner note has been reviewed by physician. Signing provider agrees with the documented findings, assessment, and plan of care. Objective - Vital Signs Vital signs: Vital Signs Temp 97.4 F L 03/11/21 11:45 Pulse 57 L 03/11/21 11:45 Resp 16 03/11/21 11:45 BP 157/62 03/11/21 11:45 Pulse Ox 96 03/11/21 11:45 Intake & Output 03/10/21 03/11/21 03/11/21 18:59 06:59 18:59 Intake Total 600 825 275 Balance 600 825 275 Weight 41.9 kg 41.6 kg Intake: IV 275 Intake, IV Titration 825 Amount Sodium Chloride 0.9% 1, 825 000 ml @ 75 mls/hr IV . [id number] [facility] Rx#:[id number] Oral 600 Other: Voiding Method Toilet # Voids 2 2 1 - Labs CBC & Chem 7: 03/10/21 06:21 03/10/21 06:21 Labs: Abnormal Lab Results - Last 24 Hours (Table) 03/10/21 03/10/21 03/10/21 Range/Units 06:21 16:34 20:00 POC Glucose (mg/dL) 135 H 106 H (75-99) mg/dL LDL Cholesterol, Calc 131.6 H (0.0-131.0) mg/dL 03/11/21 Range/Units 05:52 POC Glucose (mg/dL) 105 H (75-99) mg/dL LDL Cholesterol, Calc (0.0-131.0) mg/dL
[2021-03-11] MEDS ORDERED: CLOPIDOGREL 75 MG TAB PO ONE (14:00)
[2021-03-11 15:29] VITALS: BP 163/67; PULSE 63; TEMP 98.2
[2021-03-11 16:38] LABS: Glucose,Whole Blood 103 mg/dL (75-99)
[2021-03-11] MEDS: ATORVASTATIN 80 MG TAB PO SCH (17:30)
--- NOTE | 2021-03-11 18:40 | P.CARDCATH ---
Description of Procedure: PROCEDURES PERFORMED: Right coronary angiography, attempted PCI of RCA, balloon angiopasty of the proximal RCA with a 1.5 x 12mm balloon in attempt to facilitate wiring INDICATION: NSTEMI HISTORY: Patient is a pleasant 55 year old female with history of tobacco abuse and family history of CAD who present with sudden onset of chest pain and diaphoresis. She was given nitro with resolution of her chest pain and was found to have NSTEMI and therefore LHC was performed 03/09 which showed 40-50% LAD stenosis, 90% circumflex stenosis and diffuse 70 to 90% proximal RCA stenosis with a subtotal occlusion of the mid RCA with diffuse [id number] collaterals. The RCA lesion was felt to be more chronic and therefore intervention was performed on the circumflex 03/09 with recommendations for staged PCI of the RCA. CONSENT:I have discussed the risks, benefits and alternative therapies for the above-mentioned procedure and for both sedation/analgesia as well as necessary blood product administration, if indicated, as they pertain to this patient. The patient has indicated understanding and acceptance of the risks and procedur es discussed. PROCEDURE: After the risks, benefits and alternatives of the above mentioned procedure explained in detail with the patient, informed consent was obtained. Patient was taken to the catheterization lab and prepped and draped in usual fashion. 1% lidocaine was used to anesthetize the right radial artery. A 6- Citizen [place] sheath was placed in the right radial artery using modified Seldinger technique. A 6-Citizen [place] AL 0.75 guide was used to engage the RCA. Heparin was given for ACT greater than 250. He RCA lesion was attempted to be wired however not easily wired with a 0.014 BMW wire initially and a whisper wire and then a fielder XT wire. The Fielder XT wire appeared to be intraluminal in an acute marginal branch and was left in place. A 0.014 whisper wire with the help of a Supercross microcatheter was advanced and attempted to engage the RCA at the bifurcation however again had some difficulty advancing past the proximal RCA lesion. Therefore the decision was made to perform gentle angioplasty of the proximal lesion in an attempt to facilitate wiring of the bifurcation. After multiple attempts, decision was made to abandon procedure. Patient did not have any pain, no ischemic changes. Pre wiring there was SHIVAM 0 flow of the RCA and post wiring there was similar SHIVAM 0 flow. The right radial sheath was removed and a TR band was placed with hemostasis achieved. The patient tolerated the procedure well. Patient was transported back to the post catheterization holding area in stable condition. Conscious Sedation: Patient was monitored under the direct supervision of vision of myself for conscious sedation using Versed and fentanyl for a total duration of 55 minutes SELECTIVE CORONARY ARTERIOGRAPHY: RIGHT CORONARY ARTERY: The right coronary artery is a moderate caliber vessel which gives off a PDA and PLV branch and is the dominant vessel. There is diffuse 70-95% stenosis of the proximal RCA. The RCA then gives off an acute marginal branch and there is competitive filling of the mid RCA, just after the marginal branch from the left to right collaterals. On the collateral imaging there is a 95% stenosis at this mid RCA level. FINAL IMPRESSION: 1. Unsuccessful wiring, PCI of RCA lesion behaving like a DEPUTY HARBORMASTER PLAN: 1. Aggressive risk factor modification per most recent ACC/AHA guidelines. 2. Continue dual antiplatelets for 12 months 3. Would continue medical therapy at this time. RCA behaving like a DEPUTY HARBORMASTER lesion and may consider repeat attempted staged PCI of RCA with antegrade approach or retrograde approach.
--- NOTE | 2021-03-11 20:06 | P.DS ---
Providers Date of admission: 03/09/21 03:47 Expected date of discharge: 03/11/21 Attending physician: Ishmael Dennis Consults: 03/09/21 03:14 Consult Physician Routine Consulting Provider: Liza Ruiz Consult Reason/Comments: NSTEMI Do you want consulting provider notified?: Yes 03/09/21 11:54 Consult Physician Routine Consulting Provider: [facility] Consult Reason/Comments: Post Interventional patient Do you want consulting provider notified?: Already Contacted Primary care physician: Barry Zavala [facility] Course: Chief Complaint: Chest pain This is a pleasant 55-year-old patient who follows with Dr. Barry Zavala. Chronic stable medical conditions include hypertension, hyperlipidemia patient stopped taking medications since change of insurance GERD, seizure disorder last episode being 4 years ago. Patient is a smoker with positive family history of coronary artery disease. Patient yesterday evening started off with pain across her chest. [place] pressure-like. Even at rest. Related to the shoulder. No relieving factors. Patient [place] in significant perspiration. Nausea. Pain was present for quite a while. Patient presented initially to [facility]. Troponin is started to become positive. Patient was transferred down here. Patient underwent cardiac catheterization stent to the circumflex was done. Cardiology is planning to go back for further intervention. Postprocedure laying in bed. No symptoms. the bedside. Initial troponin at [facility] was 0.13. Patient admitted with acute non-Q wave CO. Angioplasty stenting candidate out to the left circumflex. IV heparin. 03/10/2021: Sitting up in a chair. Did walk around the room. No chest pain or shortness of breath. Patient be going back to the Legal Support Specialist tomorrow. IV heparin 03/11/2021: Patient is seen by me in around noon today. Patient informed me that she has been cleared by cardiology and that they're unable to access the lesion. No chest pain or shortness of breath. Nurse page informed be that patient would not be able to afford Brilinta hence cardiology looking into changing to Plavix. Later in the evening, nurse called me to discharge the patient. Patient is last recorded blood pressure is 1 63 x 67. I will see resume Cozaar 50 mg daily at bedtime. Patient had been advised against smoking. Discussion and discharge planning more than 35 minutes Consultation: Dr. Davis from cardiology Past medical history to include: Hypertension, hyperlipidemia, seizure disorder last episode being 4 years ago, gastritis Social history: . Smokes a pack a day for close to 40 years. 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 CAD. Physical examination: VITAL SIGNS: 98.2, 63, 16, 1 63 x 67, 97% room air GENERAL: Sitting up in bed awake, comfortable EYES: Pupils equal. Conjunctiva normal. HEENT: External appearance of nose and ears normal, oral cavity grossly normal. NECK: JVD not raised; masses not palpable. HEART: First and second heart sounds are normal; no edema. LUNGS: Respiratory rate normal; decreased breath sounds. ABDOMEN: Soft, nontender, liver spleen not palpable, no masses palpable. PSYCH: Alert and oriented x3; mood and affect normal. INVESTIGATIONS, reviewed in the clinical context: March 10: White count 6.2 hemoglobin 11.6 potassium 4.3 creatinine 0.84 EKG tracing personally reviewed by me-normal sinus rhythm, peaked P waves Blood work from [facility]: Troponin 0.13, sodium 136 potassium 3.9 creatinine 15 creatinine 1.0 proBNP 132 Assessment and plan: -Acute non-Q wave CO. Aspirin, Lipitor, Lopressor -CAD with angioplasty stenting to left circumflex. [90% circumflex, 70-95% stenosis of the RCA and 40-50% stenosis of the mid LAD.]. Second attempt at further angioplasty stenting unsuccessful. Today IV heparin-discontinued. Aspirin. Effient -IV heparin monitoring, follow PTT -Emphysema, asymptomatic. In a current smoker Albuterol when necessary -Chronic nicotine dependence, cigarette smoker Nicotine 21 g patch -GERD Pepcid 20 mg twice a day -Essential hypertension Lopressor 25 mg twice a day, Cozaar 50 mg daily at bedtime -Mild protein calorie malnutrition Ensure one can 3 times a day Disposition: Home Plan - Discharge Summary New Discharge Prescriptions: New Atorvastatin [Lipitor] 80 mg PO HS #30 tab Metoprolol Tartrate [Lopressor] 25 mg PO BID #60 tab Clopidogrel [Plavix] 75 mg PO DAILY #30 tab Aspirin 81 mg PO DAILY #30 tab Losartan Potassium [Cozaar] 50 mg PO HS #30 tablet Discontinued amLODIPine [Norvasc] 5 mg PO DAILY@1800 Discharge Medication List Aspirin 81 mg PO DAILY #30 tab 03/11/21 [Rx] Atorvastatin [Lipitor] 80 mg PO HS #30 tab 03/11/21 [Rx] Clopidogrel [Plavix] 75 mg PO DAILY #30 tab 03/11/21 [Rx] Losartan Potassium [Cozaar] 50 mg PO HS #30 tablet 03/11/21 [Rx] Metoprolol Tartrate [Lopressor] 25 mg PO BID #60 tab 03/11/21 [Rx] Follow up Appointment(s)/Referral(s): Rehab [facility],Cardiac [NON-STAFF] - 1 Week Matt Davis DO [STAFF PHYSICIAN] - 03/17/21 3:15 pm Barry Zavala MD [Primary Care Provider] - 1-2 days Patient Instructions/Handouts: Heart Attack (DC), Left Heart Catheterization (DC), Heart Healthy Diet (ED), Cardiac Rehabilitation (DC), After Radial Heart Catheterization (GEN), Procedural Sedation (ED) Discharge Disposition: HOME SELF-CARE
[2021-03-12] MEDS ORDERED: CLOPIDOGREL 75 MG TAB PO SCH (09:00)
== END 2021-03-11 19:29 | disposition home or self-care (01) | DRG 247 ==
LOC: EC 02:25 → 3SCARD 03:47
PROVIDERS: ADMIT Hospitalist; ATTEND Hospitalist
PROC: 4A023N7 Measurement of Cardiac Sampling and Pressure, Left Heart, Percutaneous Approach (ICD-10-PCS; principal; 2021-03-09 11:10)
PROC: 027034Z Dilation of Coronary Artery, One Artery with Drug-eluting Intraluminal Device, Percutaneous Approach (ICD-10-PCS; principal; 2021-03-09 11:10)
PROC: B2111ZZ Fluoroscopy of Multiple Coronary Arteries using Low Osmolar Contrast (ICD-10-PCS; principal; 2021-03-09 11:10)
PROC: B2111ZZ Fluoroscopy of Multiple Coronary Arteries using Low Osmolar Contrast (ICD-10-PCS; 2021-03-11)
PROC: 4A023N7 Measurement of Cardiac Sampling and Pressure, Left Heart, Percutaneous Approach (ICD-10-PCS; 2021-03-11)
PROC: 02703ZZ Dilation of Coronary Artery, One Artery, Percutaneous Approach (ICD-10-PCS; 2021-03-11)
DX: I21.4 Non-ST elevation (NSTEMI) myocardial infarction (principal); E44.1 Mild protein-calorie malnutrition; Z68.1 Body mass index [BMI] 19.9 or less, adult; F17.210 Nicotine dependence, cigarettes, uncomplicated; Z71.6 Tobacco abuse counseling; Z71.3 Dietary counseling and surveillance; G40.909 Epilepsy, unspecified, not intractable, without status epilepticus; I10 Essential (primary) hypertension; I25.10 Atherosclerotic heart disease of native coronary artery without angina pectoris; J43.9 Emphysema, unspecified; K21.9 Gastro-esophageal reflux disease without esophagitis; Z79.899 Other long term (current) drug therapy; E78.00 Pure hypercholesterolemia, unspecified; E78.5 Hyperlipidemia, unspecified; Z87.440 Personal history of urinary (tract) infections; Z87.19 Personal history of other diseases of the digestive system; Z80.7 Family history of other malignant neoplasms of lymphoid, hematopoietic and related tissues; Z82.49 Family history of ischemic heart disease and other diseases of the circulatory system; Z82.5 Family history of asthma and other chronic lower respiratory diseases; Z90.711 Acquired absence of uterus with remaining cervical stump; Z90.721 Acquired absence of ovaries, unilateral; Z90.49 Acquired absence of other specified parts of digestive tract; Z91.14 Patient's other noncompliance with medication regimen; Z98.890 Other specified postprocedural states; Z53.09 Procedure and treatment not carried out because of other contraindication
CPT/HCPCS: 36415; 71046; 80048; 80061; 84484; 85025; 85730; 92920; 93005; 93306; 93458; 99285